=== PATIENT | male | born 1955 | race Caucasian/White ===

== ENCOUNTER 2017-06-12 21:41 | Emergency (ER) | payer OTHER, MEDICAID ==
[~2017-06-12] VITALS: Ht 167.6 cm; Wt 77.1 kg
[2017-06-12 21:58] VITALS: BP_SYST 165
[2017-06-13 01:18] VITALS: BP_SYST 160
== END 2017-06-13 01:18 | disposition home or self-care (01) ==
LOC: SED 21:41
DX: N43.3 Hydrocele, unspecified (principal); K40.90 Unilateral inguinal hernia, without obstruction or gangrene, not specified as recurrent; E11.9 Type 2 diabetes mellitus without complications; Z88.5 Allergy status to narcotic agent; Z86.73 Personal history of transient ischemic attack (TIA), and cerebral infarction without residual deficits
CPT/HCPCS: 76870-TC; 99284

== ENCOUNTER 2017-07-31 20:16 | Emergency (ER) | payer OTHER, MEDICAID ==
[~2017-07-31] VITALS: Ht 167.6 cm; Wt 74.8 kg
[2017-07-31 20:16] VITALS: BP_SYST 160
[2017-07-31 22:30] VITALS: BP_SYST 160
== END 2017-07-31 22:30 | disposition home or self-care (01) ==
LOC: SED 20:16
DX: N43.3 Hydrocele, unspecified (principal); K40.90 Unilateral inguinal hernia, without obstruction or gangrene, not specified as recurrent; E11.9 Type 2 diabetes mellitus without complications; F41.9 Anxiety disorder, unspecified; E78.5 Hyperlipidemia, unspecified; F32.9 Major depressive disorder, single episode, unspecified; Z88.5 Allergy status to narcotic agent
CPT/HCPCS: 76870-TC; 99284